=== PATIENT | female | born 1965 | race Caucasian/White ===

== ENCOUNTER → 2021-03-09 | Outpatient (CLI) | payer OTHER | LOC: M.MRI 12:57 | PROVIDERS: ATTEND Orthopaedic Surgery | DX: M17.12 Unilateral primary osteoarthritis, left knee (principal); G89.29 Other chronic pain ==

== ENCOUNTER → 2021-04-03 | Outpatient (CLI) | payer OTHER ==
[~2021-04-03] MED LIST: BARIATRIC MV-I1 EACH PO; CALCIUM CITRAT1 EAC7 PO; OTEZLA30 MG PO; PHENTERMINE HCL30 MG PO; PRILOSEC OTC20 MG PO
[2021-04-03 11:13] LABS: ABSOLUTE EOSINOPHILS 0.1 thou/uL (0.0-0.7); ABSOLUTE MONOCYTES 0.6 thou/uL (0.0-1.2); ABSOLUTE NEUTROPHILS 4.5 thou/uL (1.6-8.1); BASOPHILS 0.4 %; EOSINOPHILS 1.3 %; HEMATOCRIT 38.2 % (37.0-47.0); HEMOGLOBIN 12.7 gm/dL (12.0-15.0); LYMPHOCYTES 36.3 %; MCH 27.7 pg (26.0-34.0); MCHC 33.2 g/dL (28.0-37.0); MCV 83.5 fL (80.0-100.0); MONOCYTES 6.7 %; MPV 8.4 fl. (7.2-11.1); NUCLEATED RBCS 0 /100WBC; PLATELET COUNT* 256 thou/uL (150-400); POLYS 55.3 %; RBC 4.58 mil/uL (4.20-5.00); RDW-CV 13.8 % (10.5-14.5); WBC 8.2 thou/uL (4.0-11.0)
[2021-04-03 11:19] LABS: URINE BILIRUBIN NEGATIVE (Negative); URINE BLOOD NEGATIVE (Negative); URINE CLARITY CLEAR; URINE COLOR YELLOW; URINE GLUCOSE-RANDOM NEGATIVE (Negative); URINE KETONES NEGATIVE (Negative); URINE LEUKOCYTES-REFLEX NEGATIVE (Negative); URINE NITRITE-REFLEX NEGATIVE (Negative); URINE PROTEIN TRACE (Negative); URINE UROBILINOGEN 0.2 E.U./dl (0.2-1.0)
[2021-04-03 11:19] LABS: PROTIME 10.3 Seconds (9.20-11.50)
[2021-04-03 11:46] LABS: CALCIUM 9.4 mg/dL (8.5-10.1); CREATININE 0.8 mg/dL (0.6-1.3); POTASSIUM 4.3 mmol/L (3.5-5.1)
--- NOTE | 2021-04-04 12:15 | EKG ---
[place] [address] ELECTROCARDIOGRAM REPORT Name: ROMULO KINGLYN DANIEL Room: [facility]#: [id number] Admission: 04/03/21 Attend Phys: Linden Cao, Discharge: Date of : 65 Date of Service: 04/03/21 1131 Report #: [id number] THIS REPORT FOR: //name// [facility] Test Date: 2021-04-03 Test Time: 11:31:37 Pat Name: DALIA KING Department: Room: Gender: F Residential Instructor: KAMALJIT WOODWARD : 1965 Requested By: Linden Cao Order Number: [id number] Leslie MD: Ash Angela Measurements Intervals [place] Rate: 84 P: 53 ID: [id number] QRS: -30 QRSD: 95 T: 20 QT: 340 QTc: 402 Interpretive Statements Sinus rhythm Left ventricular hypertrophy Baseline wander in lead(s) V5 No previous ECG available for comparison Electronically Signed On 04-04-2021 12:15:43 CDT by Ash Angela [email or web address] <ELECTRONICALLY SIGNED> By: Ash Angela MD, FAC 04/04/21 1215 1131 1131 Ash Angela MD, [facility] /EPI
== END ==
LOC: M.LAB 10:10
PROVIDERS: ATTEND Orthopaedic Surgery
DX: Z01.818 Encounter for other preprocedural examination (principal); Z01.812 Encounter for preprocedural laboratory examination; I51.7 Cardiomegaly; M17.12 Unilateral primary osteoarthritis, left knee

== ENCOUNTER 2021-04-11 09:58 | Inpatient (IN) | payer OTHER ==
[~2021-04-11] VITALS: Ht 160 cm; Wt 103.0 kg
--- NOTE | ~2021-04-11 | OP ---
[address] [address] OPERATIVE REPORT Name: DALIA KING Room: [address] [place] M.R.#: [id number] Admission: 04/11/21 Attend Phys: Harvinder Kraft Discharge: Date of : 65 Report #: [id number] THIS REPORT FOR: cc: Hailey Love MD, Jennifer MD Greiner, Robert F. II DO ~ DATE OF SURGERY: 04/11/2021 PREOPERATIVE DIAGNOSIS: Left knee osteoarthritis. POSTOPERATIVE DIAGNOSIS: Left knee osteoarthritis. PROCEDURE: Left total knee arthroplasty. SURGEON: Linden Cao II, DO CADD MANAGER: ARI May. ANESTHESIA: General endotracheal. ESTIMATED BLOOD LOSS: 50 mL. ANTIBIOTICS: Ancef preoperatively. DRAINS: Medium Hemovac. COMPLICATIONS: None. CONDITION: The patient stable to recovery room. IMPLANTS: Listed in operative record and progress note. BRIEF HISTORY: The patient in the preoperative area. Preoperative H and P was performed. Site was marked, questions were answered. Risks and benefits were discussed with the patient in detail about surgery. The patient wished to proceed assuming all risks. DESCRIPTION OF PROCEDURE: The patient was taken OP suite, placed supine on the operating table, given appropriate anesthesia. A well-padded tourniquet applied to the upper thigh, which was inflated to 300 mmHg after gravity exsanguination. The operative knee was sterilely prepped and draped. Surgery began by midline incision that was carried down to subcutaneous tissues. A medial parapatellar arthrotomy was performed, carried down to bone. Patella was then everted and excess soft tissue removed from the femur. Femoral cutting block was then applied, checked with a drop rotational alignment, pinned in appropriate position and appropriate cuts were made. A 4-in-1 [place] [address] OPERATIVE REPORT Name: JUKarenDALIA Room: [address] [place] [facility]#: [id number] Admission: 04/11/21 Attend Phys: Harvinder Kraft Discharge: Date of : 65 Report #: [id number] applied, checked for rotational alignment, pinned in appropriate position and appropriate cuts were made. Tibia was then exposed. Excess meniscus was removed. Retractor was placed on collateral ligaments. Tibial cutting block was then applied, pinned in appropriate position, checked with a drop rotational alignment and slope, and appropriate cut was made. Tibial bone was removed. Tibial baseplate was then applied, checked for rotational alignment with the drop markus and pinned in appropriate position. Femur was then applied and box cut was reamed. This was then trialed with appropriate spacer, which showed excellent fit and fill and excellent stability of the knee through all range of motion. Patella was then reamed in appropriate fashion, sized to appropriate size. Three peg holes were drilled and it was then trialed and showed excellent flexion, extension, excellent tracking patella within the groove. The trials were removed. The tibia was punched in appropriate fashion. Bone ends were cleansed with Pulsavac irrigation, cement was applied to final cement was mixed and applied to final implants. These were then malleted into position, held the knee in extension and compressed to allow cement to cure. After it cured, excess was removed using [place] and osteotome. Wound was then copiously irrigated and the final spacer was malleted into position. Tourniquet was deflated. Hemostasis was maintained with electrocautery. Pain cocktail was injected. Medium Hemovac drain was applied. Capsule was closed with #2 FiberWire and 1 Vicryl in [id number] fashion. Skin was closed with 2-0 Vicryl and running 3-0 Monocryl. Dermabond dressing applied. Joshua wrap and PolarCare applied. The patient transported to recovery in stable condition. Counts were correct. By: 16 39Linden aCo II, DO /nt
[2021-04-11 15:20] VITALS: BP 145/74
[2021-04-11 19:54] VITALS: BP 146/76
[2021-04-12] VITALS: BP 149/78
[2021-04-12 04:34] VITALS: BP 127/67
[2021-04-12 04:57] LABS: HEMATOCRIT 32.1 % (37.0-47.0); HEMOGLOBIN 10.8 gm/dL (12.0-15.0)
[2021-04-12 08:00] VITALS: BP 111/71
[2021-04-12 13:15] VITALS: BP 124/68
[2021-04-12 14:10] VITALS: BP 124/68
[2021-04-12 14:41] VITALS: BP 124/68
== END 2021-04-12 14:30 | disposition home health service (06) | DRG 470 ==
LOC: M.TBA 09:58 → M.ORTHSURG 13:10 → M.3W 15:38
PROVIDERS: Orthopaedic Surgery; ADMIT Internal Medicine; ATTEND Internal Medicine
PROC: 0SRD0J9 Replacement of Left Knee Joint with Synthetic Substitute, Cemented, Open Approach (ICD-10-PCS; principal; 2021-04-11)
DX: M17.12 Unilateral primary osteoarthritis, left knee (principal); Z68.41 Body mass index [BMI] 40.0-44.9, adult; E66.01 Morbid (severe) obesity due to excess calories; Z88.8 Allergy status to other drugs, medicaments and biological substances; Z20.822 Contact with and (suspected) exposure to COVID-19